=== PATIENT | male | born 1980 | race Caucasian/White ===

== ENCOUNTER → 2016-09-12 | Emergency (ER) | payer SELFPAY ==
[2016-09-12 17:40] VITALS: BP 154/91; PULSE 93; RESP 16; TEMP 98.6; O2SAT 96
== END | disposition left against medical advice (07) ==
DX: Z53.21 Procedure and treatment not carried out due to patient leaving prior to being seen by health care provider (principal)

== ENCOUNTER 2017-06-08 13:40 | Emergency (ER) | payer MEDICAID ==
[2017-06-08 14:00] VITALS: BP 119/93
--- NOTE | 2017-06-08 15:22 | EDPHY ---
H & P Stated Complaint: MULTIPLE C/O, STATES THAT HE CANT WALK Time Seen by Provider: 06/08/17 15:13 HPI/ROS: CHIEF COMPLAINT: Numbness HISTORY OF PRESENT ILLNESS: Patient is a 37-year-old man who was just released from long-term who originally complained of numbness in his entire body and double vision. Was triaged and nursing staff gave him a sandwich and several drinks of apple juice. When I saw him he states that he has had numbness on the right- sided his body for 3 weeks. 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 When I saw him he is moving all extremities without difficulty. He denies bowel or bladder abnormalities. He asked for 3 more juices and to use the phone so he could leave. He denies recent fevers or injuries. He was ambulating without difficulty in long-term a few hours ago. REVIEW OF SYSTEMS: Constitutional: See HPI EENTM: denies: blurred vision, double vision, nose congestion Respiratory: denies: cough, shortness of breath Cardiac: denies: chest pain, irregular heart rate, lightheadedness, palpitations Gastrointestinal/Abdominal: denies: abdominal pain, diarrhea, nausea, vomiting, blood streaked stools Genitourinary: denies: dysuria, frequency, hematuria, pain Musculoskeletal: See HPI Skin: denies: lesions, rash, jaundice, bruising Neurological: denies: headache, numbness, paresthesia, tingling, dizziness, weakness Hematologic/Lymphatic: denies: blood clots, easy bleeding, easy bruising Immunologic/allergic: denies: HIV/AIDS, transplant EXAM: GENERAL: Well-appearing, well-nourished and in no acute distress. HEAD: Atraumatic, normocephalic. EYES: Pupils equal round and reactive to light, extraocular movements intact, sclera anicteric, conjunctiva are normal. ENT: TMs normal, nares patent, oropharynx clear without exudates. Moist mucous membranes. NECK: Normal range of motion, supple without lymphadenopathy or JVD. LUNGS: Breath sounds clear to auscultation bilaterally and equal. No wheezes rales or rhonchi. HEART: Regular rate and rhythm without murmurs, rubs or gallops. ABDOMEN: Soft, nontender, normoactive bowel sounds. No guarding, no rebound. No masses appreciated. BACK: No CVA tenderness, no spinal tenderness, step-offs or deformities EXTREMITIES: The slight weakness to right arm with obvious surgical scars. Normal strength to shoulder. No pronator drift. Normal appearing right leg. Lifts or moves around. NEUROLOGICAL: Cranial nerves II through XII grossly intact. Normal speech, normal gait. normal movement in all extremities, normal sensation the NIH stroke score 0 PSYCH: Normal mood, normal affect. SKIN: Warm, dry, normal turgor, no visible rashes or lesions. Source: Patient, RN/MD Exam Limitations: No limitations - Personal History Current Tetanus/Diphtheria Vaccine: Yes - Medical/Surgical History Hx Asthma: No Hx Chronic Respiratory Disease: No Hx Diabetes: No Hx Cardiac Disease: No Hx Renal Disease: No Hx Alcoholism: Yes Other PMH: R ARM FX, FOOT FX - Family History Significant Family History: No pertinent family hx - Social History Smoking Status: Never smoked Alcohol Use: Heavy Drug Use: Other Constitutional: Initial Vital Signs Temperature (C) 36.9 C 06/08/17 13:58 Heart Rate 65 06/08/17 13:58 Respiratory Rate 16 06/08/17 13:58 Blood Pressure 119/93 H 06/08/17 13:58 O2 Sat (%) 98 06/08/17 13:58 O2 Delivery Mode Room Air Allergies/Adverse Reactions: No Known Allergies Allergy (Unverified 09/12/16 17:37) Home Medications: Medication Instructions Recorded NK [No Known Home Meds] 09/12/16 Medical Decision Making ED Course/Re-evaluation: Patient appears to have been malingering. After food and drink he is now moving all extremities but does have some baseline deficits in his right arm because of the radial nerve palsy. He is moving all extremities at baseline. He is eating. He asked for several more drinks in the telephone. Will discharge him at this time. Differential Diagnosis: Partial list of the Differential diagnosis considered include but were not limited to; neuropathy, CVA, infection, spinal cord abnormality, malingering, hypoglycemia and although unlikely based on the history and physical exam, I also considered electrolyte abnormality, hemorrhage, aneurysm. Departure - Departure Disposition: Home, Routine, Self-Care Clinical Impression: Paresthesia Condition: Fair Instructions: Paresthesia (ED) Referrals: NONE *PRIMARY CARE P,. [Primary Care Provider] - As per Instructions Rashi Rivas MD [Medical Doctor] - As per Instructions
--- NOTE | 2017-06-08 17:36 | ASDISCHSUM ---
Discharge Information Plan Status:Home with No Needs Medically Cleared to Leave:06/08/2017 Discharge Date:06/08/2017 03:54 PM CM D/C Disposition:Home, Routine, Self-Care ADT D/C Disposition:Home, Routine, Self-Care Projected Discharge Date:06/08/2017 03:54 PM Transportation at D/C:None or Unknown Discharge Delay Reason: Follow-Up Date:06/08/2017 03:54 PM Discharge Slot:2 - 12:01 pm - 18:00 pm Final Diagnosis:Paresthesia, numbness Placement Information Patient Contact Information Contact Name:JENNIFER Relationship:Mother Address:[address] Work Phone: [facility]:[employer] Alternate Phone: [facility]/Zip Code:[place] [address] Email: Financial Information Financial Class:Self-Pay Primary Plan Desc:SELF PAY Primary Plan Number: Secondary Plan Desc: Secondary Plan Number: Assessment Information [facility] Progress Note CM Note CM Note Notes: Pt presented to the Emergency Department with numbness in his legs. Pt was released from [facility] 2-3 hrs prior to presenting to the ED. Per ARACELY Crabtree, pt reports being unable to walk for the past 2 weeks. He states he has been laying in bed at the [facility]. Per ARACELY Crabtree, pt requested a sandwich and several juices. Pt wearing ear plugs, refusing to remove during RN and MD assessments. CM attempted to meet with pt to discuss needs and to assist with a discharge plan. Pt requesting a cane for d/c. Pt with large hole in david. CM offered pt new pair on pants, pt refused. Pt requesting "a shirt to tie around his waist." Long sleeve shirt obtained for pt. Pt yelling at staff demanding a cane for discharge. Security obtained wooden cane for pt from lost [facility] found. Pt refused cane. CM attempted to determine pt's plan following discharge - pt refused to discuss. Offered pt assistance in scheduling Neurology follow up, pt refused. Pt left hospital on foot with personal belongings in hand. CM available for any further issues or concerns. Date Signed: 06/08/2017 05:34 PM Electronically Signed By:Jia Davis RN Intervention Information
== END 2017-06-08 15:54 | disposition home or self-care (01) ==
DX: R20.2 Paresthesia of skin (principal)

== ENCOUNTER 2017-06-09 09:20 | Emergency (ER) | payer MEDICAID ==
--- NOTE | 2017-06-09 09:32 | EDPHY ---
H & P Time Seen by Provider: 06/09/17 09:31 HPI/ROS: HPI: This is a 29-year-old male who presents with Chief Complaint: Alcohol intoxication Location: body Quality: Alcohol intoxication Duration: Today Signs and Symptoms: Denies auditory or visual hallucination, denies suicidal ideation, denies homicidal ideation, no paranoia, denies chest pain, denies abdominal pain, denies nausea, denies vomiting, denies hematemesis, denies blood in stool, denies fever, Timing: Acute on chronic Severity: Moderate Context: Patient presents to the emergency room via EMS as he was found on a park bench early this morning with severe alcohol intoxication and agitation. Recently released from [facility]. Patient has alcohol plastic with him upon arrival. He is screaming profanities and racially charged slurs. He has a spit mask on and in 4 point leather restraints. No prior history of psychiatric illnesses. He was seen yesterday with a similar situation here in the emergency room. Modifying Factors: None Comment: ROS: Difficult due to patient's intoxication MEDICAL/SURGICAL/SOCIAL HISTORY: Medical history: Right arm fracture, Lisfranc fracture. Alcoholism Surgical history: Denies Social history: Family history noncontributory. CONSTITUTIONAL: Untidy, uncooperative, intoxicated adult white male; smells heavily of alcohol; awake and alert, no obvious distress HEENT: Atraumatic and normocephalic, PERRL, EOMI. Nares patent; no rhinorrhea; no nasal mucosal edema. Tympanic membranes clear. Oropharynx clear, no exudate and moist pink mucosa. Airway patent. No lymphadenopathy. No meningismus. Cardiovascular: Normal S1/S2, regular rate, regular rhythm, without murmur rub or gallop. PULMONARY/CHEST: Symmetrical and nontender. Clear to auscultation bilaterally. Good air movement. No accessory muscle usage. ABDOMEN: Soft, nondistended, nontender, no rebound, no guarding, no peritoneal signs, no masses or organomegaly. No CVAT. EXTREMITIES: 2/2 pulses, strength 5/5, no deformities, no clubbing, no cyanosis or edema. NEUROLOGICAL: no focal neuro deficits. GCS 15. SKIN: Warm and dry, no erythema. no rash. Good capillary refill. PSYCH: Poor eye contact, no flight of ideas, + tangential disorganized thought process, poor insight and judgment, no auditory and visual command hallucinations, no suicidal ideation with a plan, no homicidal ideation, not paranoid Source: Patient, RN/MD, EMS Exam Limitations: Intoxication - Medical/Surgical History Hx Asthma: No Hx Chronic Respiratory Disease: No Hx Diabetes: No Hx Cardiac Disease: No Hx Renal Disease: No Hx Alcoholism: Yes Other PMH: R ARM FX, FOOT FX - Social History Smoking Status: Never smoked Constitutional: Initial Vital Signs Temperature (C) 36.2 C 06/09/17 09:39 Heart Rate 80 06/09/17 09:39 Respiratory Rate 16 06/09/17 09:39 Blood Pressure 117/98 H 06/09/17 09:39 O2 Sat (%) 95 06/09/17 09:39 O2 Delivery Mode Room Air O2 (L/minute) 2 Allergies/Adverse Reactions: No Known Allergies Allergy (Unverified 09/12/16 17:37) Home Medications: Medication Instructions Recorded NK [No Known Home Meds] 09/12/16 Medical Decision Making ED Course/Re-evaluation: 0920: Placed on [facility] hold/detainer upon arrival. Patient given 2 mg IM Ativan this patient is physically aggressive to staff and is at risk to harm himself as well as the staff. Patient is clearly intoxicated. 4 points restraints ordered. 1050: Notified by nursing that patient is sleeping soundly. 1533: Notified by nursing that patient is ambulating with security without any assistance. No ataxia appreciated. Patient will be discharged to the [facility] with Librium prepack. No signs of alcohol withdrawal/delirium/psychosis. This patient was seen under the supervision of my secondary supervising physician. I evaluated care for this patient independently. Discussed this patient with Dr. Daugherty who did not see the patient. Differential Diagnosis: Differential diagnosis includes but is not limited to alcohol intoxication, schizoaffective disorder, bipolar disorder, substance abuse. - Data Points Medications Given: Discontinued Medications Chlordiazepoxide (Librium 25 Mg Prepack#6) 1 btl TAKEHOME EDNOW ONE Stop: 06/09/17 15:35 Last Admin: 06/09/17 15:42 Dose: 1 btl Lorazepam (Ativan Injection) 2 mg IM EDNOW ONE Stop: 06/09/17 09:41 Last Admin: 06/09/17 09:56 Dose: 2 mg Departure - Departure Disposition: Home, Routine, Self-Care Clinical Impression: Alcohol intoxication Qualifiers: Complication of substance-induced condition: uncomplicated Qualified Code(s): F10.920 - Alcohol use, unspecified with intoxication, uncomplicated Condition: Good Instructions: Alcohol Intoxication (ED), Abuse of Alcohol (ED) Additional Instructions: Please slowly decrease your alcohol intake. You will be discharged to [facility]. Call 911 if you have thoughts of hurting or killing yourself or anyone else, or have any new or worsening symptoms that concern you. Referrals: [facility] 24 Hours [Outside] - As per Instructions
[2017-06-09] MEDS ORDERED: LORazepam 2 MG/ML INJ IM ONE (09:40)
[2017-06-09] MEDS ORDERED: CHLORDIAZEPOXIDE 25MG PREPK#6 BTL TAKEHOME ONE (15:34)
[2017-06-09 16:27] VITALS: BP 100/75
== END 2017-06-09 16:30 | disposition home or self-care (01) ==
LOC: EDBD → EDUNIT#
DX: F10.920 Alcohol use, unspecified with intoxication, uncomplicated (principal)
CPT/HCPCS: J2060

== ENCOUNTER 2017-06-09 19:41 | Emergency (ER) | payer MEDICAID ==
[2017-06-09 19:51] VITALS: BP 138/101
--- NOTE | 2017-06-09 20:00 | EDPHY ---
H & P Stated Complaint: pt with chronic ambulatory issues. was sent back from [facility] Time Seen by Provider: 06/09/17 19:43 HPI/ROS: CHIEF COMPLAINT: Numbness in his body HISTORY OF PRESENT ILLNESS: The patient is a 37-year-old man who I am familiar with from seeing him yesterday. He yesterday complained of numbness in his entire body initially and then when I saw him he complained primarily of numbness in his right arm and leg. He had been in shelter until just before that visit and had been ambulating and moving around normally there. He has history of a arm fracture with radial neuropathy as well as Lisfranc fracture with chronic limping in his right foot. He would move his arm and leg and could ambulate however. After he had a sandwich in several juices and eventually admitted that he did not have any acute deficits or changes. He then got angry when being discharged in demanding cane. A cane was given to him but he got angry again and he threw it away. Today he was seen again for intoxication. At that point he had to be restrained in 4 point restraints because he was so combative and moving all extremities. He did not have any neuro deficits on exam. He was taken to the [facility] and there began complaining that he was numb on his right side. When I saw him again tonight he initially told me that he was numb and we discussed his previous visit and the injury history. He again admitted that he does not have any new deficits today but asked if he could only stay here for a little while to sleep and have something to eat and drink. REVIEW OF SYSTEMS: Constitutional: denies: chills, fever, recent illness, recent injury EENTM: denies: blurred vision, double vision, nose congestion Respiratory: denies: cough, shortness of breath Cardiac: denies: chest pain, irregular heart rate, lightheadedness, palpitations Gastrointestinal/Abdominal: denies: abdominal pain, diarrhea, nausea, vomiting, blood streaked stools Genitourinary: denies: dysuria, frequency, hematuria, pain Musculoskeletal: See HPI Skin: denies: lesions, rash, jaundice, bruising Neurological: See HPI denies: headache, dizziness, weakness Hematologic/Lymphatic: denies: blood clots, easy bleeding, easy bruising Immunologic/allergic: denies: HIV/AIDS, transplant EXAM: GENERAL: Well-appearing, well-nourished and in no acute distress. HEAD: Atraumatic, normocephalic. EYES: Pupils equal round and reactive to light, extraocular movements intact, sclera anicteric, conjunctiva are normal. ENT: TMs normal, nares patent, oropharynx clear without exudates. Moist mucous membranes. NECK: Normal range of motion, supple without lymphadenopathy or JVD. LUNGS: Breath sounds clear to auscultation bilaterally and equal. No wheezes rales or rhonchi. HEART: Regular rate and rhythm without murmurs, rubs or gallops. ABDOMEN: Soft, nontender, normoactive bowel sounds. No guarding, no rebound. No masses appreciated. BACK: No CVA tenderness, no spinal tenderness, step-offs or deformities EXTREMITIES: Normal range of motion, no pitting or edema. No clubbing or cyanosis. NEUROLOGICAL: Cranial nerves II through XII grossly intact. Normal speech, unsteady gait. 5/5 strength, normal movement in all extremities but if asked directly to do a neuro exam will not move arm or leg much. When distracted however he moves them normally PSYCH: Angry SKIN: Warm, dry, normal turgor, no visible rashes or lesions. Source: Patient, EMS Exam Limitations: No limitations - Personal History Current Tetanus/Diphtheria Vaccine: Unsure Current Tetanus Diphtheria and Acellular Pertussis (TDAP): Unsure - Medical/Surgical History Hx Asthma: No Hx Chronic Respiratory Disease: No Hx Diabetes: No Hx Cardiac Disease: No Hx Renal Disease: No Hx Cirrhosis: No Hx Alcoholism: Yes Hx HIV/AIDS: No Hx Splenectomy or Spleen Trauma: No Other PMH: R ARM FX, FOOT FX - Family History Significant Family History: No pertinent family hx - Social History Smoking Status: Never smoked Alcohol Use: Sober Drug Use: Marijuana, Other Constitutional: Initial Vital Signs Temperature (C) 37.0 C 06/09/17 19:47 Heart Rate 96 06/09/17 19:47 Blood Pressure 131/88 H 06/09/17 19:47 O2 Sat (%) 91 L 06/09/17 19:47 Allergies/Adverse Reactions: No Known Allergies Allergy (Unverified 09/12/16 17:37) Home Medications: Medication Instructions Recorded NK [No Known Home Meds] 09/12/16 Medical Decision Making ED Course/Re-evaluation: The patient is clearly malingering. He is here for long term and food. He does not have any neurologic deficits when distracted observed on the camera. He does not have any new or acute deficits injuries pain. We refused to give him if it and will discharge him at this time. Differential Diagnosis: Partial list of the Differential diagnosis considered include but were not limited to; intoxication, neuropathy, chronic pain, substance abuse and although unlikely based on the history and physical exam, I also considered Guillain-Winfield, CVA, spinal cord injury, infection. I discussed these differential diagnoses and the plan with the patient as well as the usual and expected course. The patient understands that the diagnosis is provisional and that in medicine we are not always correct and that further workup is often warranted. Usual and customary warnings were given. All of the patient's questions were answered. The patient was instructed to return to the emergency department should the symptoms at all worsen or return, otherwise to followup with the physician as we discussed. Departure - Departure Disposition: Home, Routine, Self-Care Clinical Impression: Malingering Condition: Fair Instructions: Alcohol Dependence (ED) Referrals: NONE *PRIMARY CARE P,. [Primary Care Provider] - As per Instructions
== END 2017-06-09 20:12 | disposition home or self-care (01) ==
LOC: EDUNIT#
DX: Z76.5 Malingerer [conscious simulation] (principal)

== ENCOUNTER 2017-06-12 17:28 | Inpatient (IN) | payer MEDICAID ==
--- NOTE | 2017-06-12 17:56 | EDPHY ---
H & P Stated Complaint: R SIDED BODY NUMBNESS FOR 3 WEEKS BEEN SEEN SEVERAL TIMES IN ED FOR SAME Time Seen by Provider: 06/12/17 17:56 HPI/ROS: CHIEF COMPLAINT: Right-sided numbness HISTORY OF PRESENT ILLNESS: The patient presents the ED with a 3 week history of right-sided numbness. The patient complains of numbness involving his right arm and leg. He denies significant facial numbness. He does report some blurry vision. The patient denies any history of fall or trauma. He denies neck pain. He denies prior history of CVA or TIA. The patient does have a history of alcohol dependence. The patient reports his last drink was last night. The patient has been seen in the emergency department over the past several days with this complaint. He is left the department without significant workup. REVIEW OF SYSTEMS: A comprehensive 10 point review of systems is otherwise negative aside from elements mentioned in the history of present illness. Source: Patient - Personal History Current Tetanus Diphtheria and Acellular Pertussis (TDAP): Unsure - Medical/Surgical History Hx Asthma: No Hx Chronic Respiratory Disease: No Hx Diabetes: No Hx Cardiac Disease: No Hx Renal Disease: No Hx Cirrhosis: No Hx Alcoholism: Yes Hx HIV/AIDS: No Hx Splenectomy or Spleen Trauma: No Other PMH: R ARM FX, FOOT FX - Social History Smoking Status: Current every day smoker - Physical Exam Exam: General Appearance: Alert, no distress Eyes: Pupils equal and round no pallor or injection ENT, Mouth: Mucous membranes moist Respiratory: There are no retractions, lungs are clear to auscultation Cardiovascular: Regular rate and rhythm Gastrointestinal: Abdomen is soft and nontender, no masses, bowel sounds normal Neurological: Alert and oriented x4, 5/5 strength noted all 4 extremities, patient reports decreased sensation to light touch along the lateral aspect of the right arm and right leg. The patient is somewhat uncooperative with exam. I detect no obvious pronator drift. The patient tells me he is having some difficulty walking and is unwilling to attempt ambulation in the ED. Skin: Warm and dry, no rashes Musculoskeletal: Neck is supple nontender Extremities: symmetrical, full range of motion Constitutional: Initial Vital Signs Temperature (C) 37 C 06/12/17 17:41 Heart Rate 69 06/12/17 17:41 Respiratory Rate 16 06/12/17 17:41 Blood Pressure 124/93 H 06/12/17 17:41 O2 Sat (%) 96 06/12/17 17:41 O2 Delivery Mode Room Air Allergies/Adverse Reactions: No Known Allergies Allergy (Unverified 09/12/16 17:37) Home Medications: Medication Instructions Recorded NK [No Known Home Meds] 09/12/16 Medical Decision Making - Diagnostics EKG Interpretation: EKG: Complete interpretation has been separately recorded in the [facility] archive. Summary impression: Sinus rhythm, rate 62 Imaging Results: Imaging Impressions Brain MRI 06/12/17 17:57 Impression: 1. 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 2. No acute infarct. 3. No acute hemorrhage, hydrocephalus or mass effect. Findings and recommendations discussed with Emergency Department physician, Carmelo Vizcarra at 1850 hour, 06/12/2017. Final report concurs with initial preliminary interpretation. ED Course/Re-evaluation: The patient is an alcoholic homeless male who presents to the emergency department with 3 weeks of right-sided paresthesias, visual complaints of reported difficulty with ambulation. The patient was taken for an MRI of the brain which demonstrates a thalamic stroke which is not acute. The patient reports he has had the symptoms for the past 3 weeks. The etiology of his stroke is somewhat uncertain. I do feel given his current social situation lack of access to primary care he should be admitted for evaluation of his CVA. A CT angiogram of the head neck has been ordered. The patient was given an 81 mg aspirin in the emergency department. Consultation was made with Dr. Magaña from the hospitalist service who will admit the patient. The patient currently has an NIH stroke scale of 1-2 based upon his sensory symptoms. He is not a candidate for thrombolytics therapy given the duration of his symptoms. Differential Diagnosis: Differential diagnosis considered includes stroke, TIA, intracranial hemorrhage , metabolic abnormality, Deny's paralysis - Data Points Laboratory Results: Laboratory Results 06/12/17 19:40 06/12/17 19:40 06/12/17 06/12/17 06/12/17 19:40 19:40 19:40 WBC 7.25 10^3/uL 10^3/uL (3.80-9.50) RBC 4.12 10^6/uL L 10^6/uL (4.40-6.38) Hgb 12.7 g/dL L g/dL (13.7-17.5) Hct 37.4 % L % (40.0-51.0) MCV 90.8 fL fL (81.5-99.8) MCH 30.8 pg pg (27.9-34.1) MCHC 34.0 g/dL g/dL (32.4-36.7) RDW 12.3 % % (11.5-15.2) Plt Count 270 10^3/uL 10^3/uL (150-400) MPV 10.1 fL fL (8.7-11.7) Neut % (Auto) 64.4 % % (39.3-74.2) Lymph % (Auto) 24.6 % % (15.0-45.0) [place] % (Auto) 8.1 % % (4.5-13.0) Eos % (Auto) 1.5 % % (0.6-7.6) Baso % (Auto) 0.7 % % (0.3-1.7) Nucleat RBC Rel Count 0.0 % % (0.0-0.2) Absolute Neuts (auto) 4.67 10^3/uL 10^3/uL (1.70-6.50) Absolute Lymphs (auto) 1.78 10^3/uL 10^3/uL (1.00-3.00) Absolute Monos (auto) 0.59 10^3/uL 10^3/uL (0.30-0.80) Absolute Eos (auto) 0.11 10^3/uL 10^3/uL (0.03-0.40) Absolute Basos (auto) 0.05 10^3/uL 10^3/uL (0.02-0.10) Absolute Nucleated RBC 0.00 10^3/uL 10^3/uL (0-0.01) Immature Gran % 0.7 % % (0.0-1.1) Immature Gran # 0.05 10^3/uL 10^3/uL (0.00-0.10) Sodium 142 mEq/L mEq/L (135-145) Potassium 3.9 mEq/L mEq/L (3.5-5.2) Chloride 107 mEq/L mEq/L (97-110) Carbon Dioxide 25 mEq/l mEq/l (22-31) Anion Gap 10 mEq/L mEq/L (8-16) BUN 7 mg/dL mg/dL (7-23) Creatinine 0.8 mg/dL mg/dL (0.7-1.3) Estimated GFR > 60 Glucose 91 mg/dL mg/dL (70-100) Calcium 8.9 mg/dL mg/dL (8.5-10.4) Ethyl Alcohol Pending Departure - Departure Disposition: [facility] Clinical Impression: Alcohol dependence, Ischemic stroke Condition: Fair
[2017-06-12 19:47] LABS: PLATELET COUNT 270 10^3/uL (150-400)
[2017-06-12] MEDS ORDERED: IOPAMIDOL (ISOVUE 370) 100 ML BTL IV ONE (20:06)
[2017-06-12] MEDS ORDERED: ASPIRIN 325 MG TAB PO ONE (20:25)
--- NOTE | 2017-06-12 20:41 | CPEKG ---
Heart Rate: 62 RR Interval: 968 P-R Interval: 180 QRSD Interval: 94 QT Interval: 424 QTC Interval: 431 P Lugoff: 37 QRS Lugoff: 48 T Wave Lugoff: 29 EKG Severity - NORMAL ECG - EKG Impression: SINUS RHYTHM Electronically Signed By: Carmelo Vizcarra 12-Jun-2017 20:43:36
[2017-06-12] MEDS ORDERED: ONDANSETRON DISINTEGRATING 4 MG TAB PO PRN (21:46)
[2017-06-12] MEDS ORDERED: ONDANSETRON 4 MG/2 ML VIAL IVP PRN (21:46)
--- NOTE | 2017-06-12 22:47 | GHP ---
[f rep st] HISTORY AND PHYSICAL DATE OF ADMISSION: 06/12/2017 CHIEF COMPLAINT: Right-sided weakness. HISTORY OF PRESENT ILLNESS: The patient is a 37-year-old, homeless man who comes in with several wee ks of right-sided numbness and weakness. He has been seen in the emergency department a couple times . His last visit was on 06/09. At that time, he continued to complain of numbness and when he came in, he said his symptoms had resolved and he wanted to just eat and sleep in the ER for a while. Tod benigno, he came back complaining of right-sided numbness. He said he felt weak, but it was not clear if he was truly weak or not. He has had no fevers, chills, recent illnesses. He said he has had no sle ep in the last 2 weeks and his vision is bad. He said he is having more trouble with his speech but no trouble swallowing. He also had some pain on the right hand associated with the numbness. He den ies any head trauma. No history of travel. No history of previous clots or heart disease or previou s strokes. He is very difficult to get a history out of. REVIEW OF SYSTEMS: A comprehensive review of systems was done with pertinent positives present in th e HPI. PAST MEDICAL HISTORY: Negative. SOCIAL HISTORY: He is currently homeless. When I ask him where he lives, he says he is here in the hospital. He says he smokes about a half pack a day and drinks only about 2 drinks per night. He de nies any history of withdrawals. FAMILY HISTORY: Both his parents he believes are healthy. No history of strokes or blood clots that he knows of. MEDICATIONS: None. ALLERGIES: No known drug allergies. PHYSICAL EXAMINATION: VITAL SIGNS: He is afebrile. Heart rate 64, blood pressure 142/97, respirati ons 17, 98% on room air. GENERAL: He is a very pleasant, 37-year-old, he is in no distress. He is sleepy. HEENT: Pupils appear equal. Sclerae anicteric. Extraocular movements intact. Face is sym metric. There is no facial droop. Tongue is midline. NECK: Supple. No adenopathy. No carotid br uits. HEART: Regular without murmur, gallop, or rub. LUNGS: Clear bilaterally. No wheeze or rhon chi. ABDOMEN: Soft. No masses. EXTREMITIES: No clubbing, cyanosis, or edema. SKIN: Intact. No rash. MUSCULOSKELETAL: No joint deformities. NEUROLOGIC: He does have some slight weakness on the right upper extremity in cue selector strength as well as biceps and triceps strength is probably 4+/5. Left hand is 5/5. Lower extremities appear fairly equal. Subjectively, his sensation is decreased on e right side. PSYCHIATRIC: He has poor eye contact and a depressed mood. LABORATORY DATA: CBC is unremarkable, except for mild anemia with a hemoglobin of 12.7. Chemistries are normal. Alcohol level is negative. DIAGNOSTICS: MRI of the brain shows an old infarct in the left thalamus. No acute infarct. CT michael ogram of the head and neck shows no stenosis. ASSESSMENT AND PLAN: 1. A 37-year-old presents with unknown duration of some right-sided numbness and some mild right upp er extremity weakness. 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 Timeline is uncertain at this point . He is a young man and I do not have a clear reason why he would have this stroke. Plan will be to admit him in the hospital for telemetry monitoring to rule out atrial fibrillation. Will get an ech ocardiogram with bubble study and have Neurology consult in the a.m. I will defer to them if they wa nt to do a further anticoagulation workup. In the meantime, I will get lipid panel and hemoglobin A1 c. He was able to swallow water without any coughing and I will let him eat tonight. He does not olivera ve any visible facial droop. 2. Alcoholism. He denies being a heavy drinker, although he has had an elevated alcohol level in past. Will add a urine drug screen to look for cocaine or other possibilities as to a cause of his stroke. 3. Homelessness. Will work with Case Management. 4. Deep vein thrombosis prophylaxis. Start low-molecular weight heparin. /[id number]/MODL
[2017-06-13] MEDS: ASPIRIN 325 MG TAB PO SCH (09:16)
[2017-06-13] MEDS: ENOXAPARIN 40 MG/0.4 ML SYR SC SCH (09:16)
--- NOTE | 2017-06-13 09:46 | NEUROPROG ---
Assessment: [id number] - Neurology Consult: - CC: Dr. Cnonie Magaña consulted neurology for right sided weakness. Results placed in EMR for her review. - HPI: Pt who is homeless presented to [facility] ER on 06/12/17 complaining of several weeks of right sided numbness and weakness as well as speech problems. He had been seen previously in the ER for similar complaints in the last few weeks. Brain MRI w/o con showed no acute changes (did show old left thalamic infarct) and CTA head/neck was unremarkable. I initially saw the patient on 06/13/17. He could not give a precise history but he seemed to indicated over the last few weeks he had right sided weakness and numbness that would come and go. He did not recall a prior stroke or prior residual neurologic issues in the past. He felt almost completely back to normal when I talked with him. - PMHx: none - SHx: homeless FHx: no strokes - ROS: Pt denied acute fever, total vision loss, active severe chest pain, respiratory failure, total body severe rash, total bowel/bladder incontinence, psychosis, active seizures, or active bleeding - O: VS reviewed General: Alert Eyes: Fundoscopic exam not able to visualize optic disks CV: Heart RRR, no murmur, no carotid bruit Lungs: Clear to auscultation bilaterally, no rhonchi or rales Neuro: - Mental: . Oriented x person/place/date . concentration appears normal . speech fluency/comprehension normal . memory appears normal . fund of knowledge appear intact - Cranial Nerves: . II: PERRL, VFFTC . III/IV/: EOMI, no nystagmus, normal smooth pursuits, no Ptosis . V: facial sensation intact to LT . VII: face symmetric to eye closure and smile . VIII: hearing intact to conversation . IX/X: uvula raises symmetrically . XI: SCM 5/5 B/L strength . XII: tongue protrudes midline w/nl strength - Motor: . Tone: normal tone in all 4 extremity . Strength: no pronator drift, strength 5/5 throughout (B/L delt, bic, tri, hand surgical physician assistant, hf/he, df/pf) - Reflexes: B/L bic/BR/patella 2/4 - Sensory: all 4 extremity intact to light touch - Coord: [id number]-cw-[id number] wnl, FREDDY wnl, [id number]-[id number] wnl - Gait: deferred - NIH SS 0 - Labs: 06/12/17- CBC Hct 37.4L, Chem wnl, H1AC 5.1, UTox negative - Rads: 06/12/17- CTA head/neck: unremarkable - 06/12/17- Brain MRI w/o con: old left thalamus infarct, no acute changes (I personally visualized the images on 06/13/17) - Assessment: 1. Subjective Report of intermittent Right sided weakness/numbness and speech issues for weeks on 06/13/17: Neurologic exam normal on 06/13/17. Pt is homeless which complicates his medical picture. Brain MRI on 06/12/17 showed no acute changes to explain his symptoms. He does have an old left thalamic infarct so it is possible his weakness is from that old stroke. Recommend completing stroke evaluation and getting cervical MRI w/ and w/o con. If workup is negative he can discharge on aspirin 81 mg qd and f/u in neurology clinic for EMG/NCS testing on right side of body. - Plan: - TTE, 24 hour telemetry - PT/OT/SPeech - Social work given pt is homeless - Work closely with PCM to ensure blood pressure < 140/90, H1AC < 7.0, and LDL < 70 (LDL pending, begin statin if > 70) - Aspirin 81 mg qd given old thalamic stroke seen on brain MRI - Cervical MRI w/ and w/o con to exclude demyelination causing symptoms - F/U in neurology clinic after hospital discharge for EMG/NCS of right side to evaluate for peripheral nerve disease Objective: Vital Signs Temp Pulse Resp BP Pulse Ox 37.1 C 52 L 16 122/93 H 98 06/13/17 03:10 06/13/17 03:10 06/13/17 03:10 06/13/17 03:10 06/13/17 03:10 06/12/17 06/13/17 06/14/17 05:59 05:59 05:59 Intake Total 700 Output Total 745 Balance -45 Allergies/Adverse Reactions: No Known Allergies Allergy (Unverified 09/12/16 17:37)
[2017-06-13] MEDS: NICOTINE 21 MG/24 HR PATCH TD SCH (11:39)
--- NOTE | 2017-06-13 13:01 | HOSPPROG ---
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 Appreciate neurology consult. -Cervical MRI today to r/o demyelinating lesions -cont ASA -add on lipid panel and start statin if LDL >70 -cont telemetry monitoring -echo pending -BP goal <140/90 H/O alcohol abuse - neg etoh, denies recent heavy drinking. -monitor for signs/symptoms of withdrawal Tobacco abuse - offered nicoderm, discussed non-smoking campus and CVA risk factor. -cessation encouraged Homelessness - CM consult Full code Dispo - change to inpt for further workup and evaluation of right sided numbness and CVA Subjective: Pt sitting in wheelchair by the door. Demands to go outside and smoke. Still has right sided weakness, intermittent numbness of right arm. Currently, sensation intact. No CP or SOB. No palpitations. No olivera or vision changes. Objective: Vital Signs Temp Pulse Resp BP Pulse Ox 37.1 C 52 L 16 122/93 H 98 06/13/17 03:10 06/13/17 03:10 06/13/17 03:10 06/13/17 03:10 06/13/17 03:10 06/12/17 06/13/17 06/14/17 05:59 05:59 05:59 Intake Total 700 Output Total 745 Balance -45 - Physical Exam Constitutional: no apparent distress Eyes: PERRL Ears, Nose, Mouth, Throat: moist mucous membranes Cardiovascular: regular rate and rhythym Respiratory: no respiratory distress, clear to auscultation Gastrointestinal: normoactive bowel sounds, soft, non-tender abdomen Skin: warm Musculoskeletal: other (4/5 RUE extensor strength, 4/5 RLE proximal strength, + pronator drift on right, no facial asymmetry, speech fluent) Neurologic: AAOx3 Psychiatric: interacting appropriately ICD10 Worksheet Patient Problems: Problems Problem Status Onset Alcohol dependence Acute Ischemic stroke Acute
--- NOTE | 2017-06-13 15:34 | PDMN ---
Medical Necessity Medical necessity: change to IP; los>2mn for thalamus stroke w/ R sided numbness , hx etoh abuse; requires further w/u and evaluation and monitoring for etoh withdrawal; comorbid homelessness; per order and progress note 06/13/17
--- NOTE | 2017-06-13 16:46 | ASMTCMCOM ---
CM Note CM Note Notes: Pt in for stroke, came in after several weeks of R sided numbness/weakness. Pt has also been in the [facility] ED recently (there is a 06/08/17 CM note). Pt homeless and history of alcoholism. Pt qualified for Medicaid today effective 05/21/17. Neurology consulting. OT rec outpatient, PT rec SNF, pt declined [facility] eval today. Pt does not qualify for inpatient rehab. CM to follow. Date Signed: 06/13/2017 04:46 PM Electronically Signed By:SOPHIE Bauman
--- NOTE | 2017-06-13 17:11 | ECHO ---
[email or web address] [address] [address] Main: [phone] Fax: Transthoracic Echocardiogram Name: [place] O[place] MR#: [id number] Study Date: 06/13/2017 Study Time: 08:35 AM Date of : 1980 Age: 37 year(s) Height: 170.2 cm (67 in.) Weight: 63.5 kg (140 lb.) BSA: 1.74 m2 Gender: Male Examination: Echo Indication: tia Image Quality: Contrast: Requested by: Connie Magaña BP: / Heart Rate: Rhythm: Indication: tia Procedure Staff Social Sciences Lecturer: Iesha Josue [facility] Reading Physician: Luis Chapin MD Requesting Provider: Conclusions: Normal size left ventricle. No LV hypertrophy. Normal global systolic LV function. The ejection fraction is visually estimated to be 60 %. Normal diastolic LV function. An agitated saline study was performed and was negative for intracardiac shunting. The mitral valve is normal in appearance and function. Mild mitral valve regurgitation is present. The aortic valve is normal in appearance and function. No aortic valve stenosis is present. The tricuspid valve is normal in appearance and function. Trivial to mild tricuspid valve regurgitation. Right ventricular systolic pressure measures 21mmHg. Normal size ascending aorta measuring 2.6 cm. No pericardial effusion. Measurements: Chambers Valvular Assessment AV/MV Valvular Assessment TV/PV Normal Normal Normal Name Value Range Name Value Range Name Value Range Ao Corie (2D): 2.8 cm (1.4 cm-2.6 AV Vmax: 1.60 m/s (1 m/s-1.7 TR Vmax: 2.01 mm/s ( - ) cm) m/s) TR PGmax: 16 mmHg ( - ) IVSd (2D): 0.9 cm (0.6 cm-1.1 AV maxP mmHg ( - ) syst. PAP: 21 mmHg ( - ) cm) AV meanP mmHg ( - ) PV Vmax: 1.17 m/s (0.6 m/s-0.9 LVDd (2D): 4.2 cm (4.2 cm-5.9 LVOT Vmax: 1.08 m/s (0.7 m/s-1.1 m/s) cm) m/s) PV PGmax: 5 mmHg ( - ) LVDs (2D): 2.6 cm (2.1 cm-4 LINDSEY (Vmax): 1.9 cm2 ( - ) cm) LINDSEY (VTI): 2.2 cm ( - ) LVPWd (2D): 1.0 cm (0.6 cm-1 MV E Vmax: 0.88 m/s ( - ) cm) MV A Vmax: 0.49 m/s ( - ) Patient: LA[place] OSUNA Study Date: 06/13/2017 Page 1 of 3 08:35 AM LVOTd 1.9 cm 1.9 cm mm MV E/A: 1.80 ( - ) LVEF (BP): 69 % (>=55 %) MV PHT: 0.063 s ( - ) Visual EF: 60 % MVA (PHT): 3.5 s ( - ) RVDd(2D): 2.8 cm (1.9 cm-3.8 cmmm) Continued Measurements: Chambers Valvular Assessment AV/MV Valvular Assessment TV/PV Name Value Name Value Name Value LADs: 3.3 cm MV DecTime: 190 m/s CVP (est.): 5 mmHg LADs Lon.0 cm MV E/E' Septal: 7.60 LA Area: 16.0 cm2 MV E/E' Lateral: 5.20 LA Volume: 45 ml LA Volume Index: 25.9 ml/m2 RA Area: 13.1 cm2 Additional Vessels Name Value Ao Ascendin.6 cm Inferior Vena Cava: 1.3 cm Findings: Left Ventricle: Normal size left ventricle. No LV hypertrophy. Normal global systolic LV function. The ejection fraction is visually estimated to be 60 %. No regional wall motion abnormality. Normal diastolic LV function. Right Ventricle: Normal size right ventricle. Normal RV function. Left Atrium: The left atrium is normal in size. An agitated saline study was performed and was negative for intracardiac shunting. Right Atrium: The right atrium is normal in size. Mitral Valve: The mitral valve is normal in appearance and function. Mild mitral valve regurgitation is present. No mitral stenosis is present. Aortic Valve: The aortic valve is normal in appearance and function. There is no significant aortic valve regurgitation. No aortic valve stenosis is present. Tricuspid Valve: The tricuspid valve is normal in appearance and function. Trivial to mild tricuspid valve regurgitation. The pulmonary artery pressure is normal. Right ventricular systolic pressure measures 21mmHg. Pulmonic Valve: Pulmonary valve not well visualized. There is no pulmonic regurgitation seen. Aorta: The aorta is normal. Normal size aortic root measuring 2.8 cm. Normal size ascending aorta measuring 2.6 cm. IVC: The IVC is normal sized. Pericardium: No pericardial effusion. No pleural effusion. Exam Comments: Patient supine, refused to lay on left side due to pain. (No Signature Object) Patient: LA[place] OSUNA Study Date: 06/13/2017 Page 2 of 3 08:35 AM Patient: LA[place] OSUNA Study Date: 06/13/2017 Page 3 of 3 08:35 AM [id number]
[2017-06-14] MEDS: NICOTINE 21 MG/24 HR PATCH TD SCH (09:21)
[2017-06-14] MEDS: ACETAMINOPHEN 325 MG TAB PO PRN ×2 (09:21→14:21)
[2017-06-14] MEDS: LISINOPRIL 5 MG TAB PO SCH (09:22)
[2017-06-14] MEDS: ASPIRIN 325 MG TAB PO SCH (09:22)
[2017-06-14] MEDS: ATORVASTATIN CALCIUM 20 MG TAB PO SCH (09:23)
--- NOTE | 2017-06-14 10:11 | NEUROPROG ---
Assessment: [id number] - Neurology Consult: - CC: F/U for right sided weakness - Narrative Summary: Pt who is homeless presented to [facility] ER on 06/12/17 complaining of several weeks of right sided numbness and weakness as well as speech problems. He had been seen previously in the ER for similar complaints in the last few weeks. Brain MRI w/o con showed no acute changes (did show old left thalamic infarct) and CTA head/neck was unremarkable. I initially saw the patient on 06/13/17. He could not give a precise history but he seemed to indicated over the last few weeks he had right sided weakness and numbness that would come and go. He did not recall a prior stroke or prior residual neurologic issues in the past. He felt almost completely back to normal when I talked with him. - HPI: F/U 06/14/17. TTE showed no cardioembolic course. Pt declined getting cervical MRI at this time. Pt denied new complaints and feels his right sided weakness is improving. - PMHx: none - SHx: homeless FHx: no strokes - ROS: Pt denied acute fever, total vision loss, active severe chest pain, respiratory failure, total body severe rash, total bowel/bladder incontinence, psychosis, active seizures, or active bleeding - Labs: 06/12/17- CBC Hct 37.4L, Chem wnl, H1AC 5.1, UTox negative - Rads: 06/12/17- CTA head/neck: unremarkable 06/12/17- Brain MRI w/o con: old left thalamus infarct, no acute changes (I personally visualized the images on 06/13/17) 06/13/17- TTE: No thrombus reported - Assessment: 1. Subjective Report of intermittent Right sided weakness/numbness and speech issues for weeks on 06/13/17: Neurologic exam normal on 06/13/17. Pt is homeless which complicates his medical picture. Brain MRI on 06/12/17 showed no acute changes to explain his symptoms. He does have an old left thalamic infarct so it is possible his weakness is from that old stroke. CTA head/neck, TTE, H1AC, LDL, and 24 hour telemetry unremarkable. He can discharge on aspirin 81 mg qd, low dose statin, and f/u in neurology clinic for EMG/NCS testing on right side of body. He declined a cervical MRI w/ and w/o con on 06/14/17 to exclude demyelinating disease. - Plan: - PT/OT/SPeech to determine any rehab needs - Work closely with PCM to ensure blood pressure < 140/90, H1AC < 7.0, and LDL < 70 - Aspirin 81 mg qd given old thalamic stroke seen on brain MRI - LDL 71, recommend low dose statin - He declined a cervical MRI w/ and w/o con on 06/14/17 to exclude demyelinating disease - F/U in neurology clinic after hospital discharge for EMG/NCS of right side to evaluate for peripheral nerve disease - No further neurologic w/u needed, neurology will sign off - 35 min spent with patient, majority of time spent counseling on his symptoms and possible causes. Objective: Vital Signs Temp Pulse Resp BP Pulse Ox 36.3 C 96 18 139/112 H 95 06/14/17 08:00 06/14/17 08:00 06/14/17 08:00 06/14/17 08:00 06/14/17 08:00 06/13/17 06/14/17 06/15/17 05:59 05:59 05:59 Intake Total 700 200 Output Total 744 700 Balance -45 -500 Allergies/Adverse Reactions: No Known Allergies Allergy (Unverified 09/12/16 17:37)
[2017-06-14] MEDS: ENOXAPARIN 40 MG/0.4 ML SYR SC SCH (10:30)
[2017-06-14] MEDS ORDERED: GADOBUTROL 10 ML VIAL IVP ONE (11:40)
--- NOTE | 2017-06-14 13:28 | HOSPPROG ---
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 Appreciate neurology consult. -Cervical MRI today to r/o demyelinating lesions- pt refused yesterday, results currently pending -cont ASA -started low dose statin for LDL >70 -cont telemetry monitoring -echo reviewed, no shunt or thrombus -BP over goal <140/90- start lisinopril, up-titrate as needed -his pain may be neuropathic, trial neurontin H/O alcohol abuse - neg etoh, denies recent heavy drinking. -monitor for signs/symptoms of withdrawal Tobacco abuse - offered nicoderm, discussed non-smoking campus and CVA risk factor. -cessation encouraged Insomnia - trazodone Homelessness - CM consult Full code Dispo - cont inpt, possible SNF, await further therapy recs. Discussed with CM , pt approved for medicaid. Subjective: Pt is "tired". C/O burning pain in arm. Still weak. No significant change in RUE and RLE weakness. Still has trouble walking. EAting well. Objective: Vital Signs Temp Pulse Resp BP Pulse Ox 36.3 C 96 18 139/112 H 95 06/14/17 08:00 06/14/17 08:00 06/14/17 08:00 06/14/17 08:00 06/14/17 08:00 06/13/17 06/14/17 06/15/17 05:59 05:59 05:59 Intake Total 700 200 Output Total 745 700 Balance -45 -500 - Physical Exam Constitutional: no apparent distress Eyes: PERRL Ears, Nose, Mouth, Throat: moist mucous membranes Cardiovascular: regular rate and rhythym Respiratory: no respiratory distress Gastrointestinal: normoactive bowel sounds, soft, non-tender abdomen Skin: warm Musculoskeletal: abnormal gait Neurologic: AAOx3, other (RUE with decreased extensor strength, hand flexure) Psychiatric: interacting appropriately, poor insight ICD10 Worksheet Patient Problems: Problems Problem Status Onset Alcohol dependence Acute Ischemic stroke Acute
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
[2017-06-14] MEDS: GABAPENTIN 300 MG CAP PO SCH ×2 (16:51→20:16)
[2017-06-14] MEDS: traZODone 50 MG TAB PO SCH (20:13)
[2017-06-15] MEDS: ACETAMINOPHEN 325 MG TAB PO PRN (05:23)
--- NOTE | 2017-06-15 08:04 | NEUROPROG ---
Assessment: Pt decided to proceed with cervical MRI w/ and w/o con that was essentially unremarkable (mild degen changes that does not appear to be causing his symptoms ). No additional recs at this time from neurology, the recs in my note from yesterday remain unchanged. Neurology will sign off. Objective: Vital Signs Temp Pulse Resp BP Pulse Ox 36.5 C 54 L 16 111/69 95 06/15/17 05:20 06/15/17 05:20 06/15/17 05:20 06/15/17 05:20 06/15/17 05:20 06/14/17 06/15/17 06/16/17 05:59 05:59 05:59 Intake Total 200 700 Output Total 700 Balance -500 700 Allergies/Adverse Reactions: No Known Allergies Allergy (Unverified 09/12/16 17:37)
[2017-06-15] MEDS: GABAPENTIN 300 MG CAP PO SCH ×3 (09:05→21:52)
[2017-06-15] MEDS: LISINOPRIL 5 MG TAB PO SCH (09:06)
[2017-06-15] MEDS: ASPIRIN 325 MG TAB PO SCH (09:06)
[2017-06-15] MEDS: ATORVASTATIN CALCIUM 20 MG TAB PO SCH (09:06)
[2017-06-15] MEDS: NICOTINE 21 MG/24 HR PATCH TD SCH (09:07)
[2017-06-15] MEDS: ENOXAPARIN 40 MG/0.4 ML SYR SC SCH (09:08)
--- NOTE | 2017-06-15 16:21 | ASMTCMCOM ---
CM Note CM Note Notes: Seven SNFs have declined pt due to various reasons, [facility] and [facility] are SNFs still pending assessment. [facility] still needs to complete functional assessment. Pt declined PT/OT the past couple days. Neurology signed off today. Pt was going to d/c to the streets today and pt was observed today to have some type of psychosis so d/c order cancelled with psych eval ordered by Hospitalist Doris. ARACELY Boateng reports she spoke w pt mother w pt permission and mother indicated pt does have a psych diagnosis but unclear what. Med Data assessment for LTC and [facility] on-site assessment postponed today due to psych concerns. [facility] to assess pt this afternoon. CM to follow. Date Signed: 06/15/2017 04:21 PM Electronically Signed By:SOPHIE Bauman
--- NOTE | 2017-06-15 16:30 | HOSPPROG ---
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 Appreciate neurology consult. C-spine MRI neg for demyelinating dz. -cont ASA, statin -cont tele, no a fib by personal review -echo reviewed, no shunt or thrombus -his pain may be neuropathic, trial neurontin -he is refusing PT/OT Hypertension - BP improved with low dose lisinopril, continue H/O alcohol abuse - neg etoh, denies recent heavy drinking. -monitor for signs/symptoms of withdrawal Tobacco abuse - offered nicoderm, discussed non-smoking campus and CVA risk factor. -cessation encouraged Insomnia - trazodone Homelessness - CM consult Behavioral disturbance NOS - Unclear if this is axis 2 / PD or decompensated mental illness. I am unable to reach his family for further MH hx (phone: ), but some concern he may be responding to internal stimuli and this may be why he is not cooperating with therapy and staff. See Rosario Rutherford's note for details on his behavior and recommendations for interacting with Mr. Ambrose. -[facility] consult as I believe he warrants a psychiatry consult and consideration of inpt behavioral health Dispo - cont inpt. We were awaiting SNF placement, but pt not cooperating with PT/OT and thus considered discharge to street. However, I'm concerned he may be decompensated from a mental health standpoint and I believe he warrants a psychiatrist consult as he may be a grave harm to himself if he leaves. He wants to stay and thus not placed on a hold. Would place him on a hold until [facility] eval if he tried to leave, which is unlikely Subjective: Pt is not cooperative. States "I'm busy, I'll talk to you later". Refuses therapy again stating he is busy. Defensive posturing. Objective: Vital Signs Temp Pulse Resp BP Pulse Ox 36.4 C 62 16 110/74 96 06/15/17 08:00 06/15/17 08:00 06/15/17 08:00 06/15/17 08:00 06/15/17 08:00 06/14/17 06/15/17 06/16/17 05:59 05:59 05:59 Intake Total 200 700 Output Total 700 Balance -500 700 - Physical Exam Constitutional: no apparent distress Psychiatric: anxious, agitated ICD10 Worksheet Patient Problems: Problems Problem Status Onset Alcohol dependence Acute Ischemic stroke Acute
[2017-06-15] MEDS: traZODone 50 MG TAB PO SCH (21:52)
[2017-06-16] MEDS: ACETAMINOPHEN 325 MG TAB PO PRN ×2 (09:46→15:57)
[2017-06-16] MEDS: ASPIRIN 325 MG TAB PO SCH (09:46)
[2017-06-16] MEDS: ATORVASTATIN CALCIUM 20 MG TAB PO SCH (09:47)
[2017-06-16] MEDS: ENOXAPARIN 40 MG/0.4 ML SYR SC SCH (09:48)
[2017-06-16] MEDS: GABAPENTIN 300 MG CAP PO SCH ×3 (09:48→20:52)
[2017-06-16] MEDS: NICOTINE 21 MG/24 HR PATCH TD SCH (09:49)
[2017-06-16] MEDS: LISINOPRIL 5 MG TAB PO SCH (09:59)
--- NOTE | 2017-06-16 15:17 | HOSPPROG ---
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 Appreciate neurology consult. C-spine MRI neg for demyelinating dz. Neuro recommending op f/u for consideration of EMG eval and f/u of sxs. Continued on asa, statin. Patient refusing pt/ot. # gait instability: pt/ot eval and don't feel that a walker would help, he is homeless and does not have funds for wheelchair. Rejected from SNF. Will need to go back to homelessness # behavioral issues: with what is likely all related to personality issues. Continues to appear to be responding to internal stimuli and continues to be confrontational and angry. TLC eval and they do not feel he is in need of IP psych stay. Is well known to ER staff. # Hypertension - BP improved with low dose lisinopril, continue # H/O alcohol abuse - neg etoh, denies recent heavy drinking. No s/s of withdrawal # Tobacco abuse - offered nicoderm, encouraging cessation Insomnia - trazodone Homelessness - CM consult Dispo: no great dispo options for this patient, he is likely at baseline however, will plan to dc in am Subjective: no significant overnight events Objective: Vital Signs Temp Pulse Resp BP Pulse Ox 36.9 C 60 18 119/73 95 06/16/17 09:56 06/16/17 09:56 06/16/17 09:56 06/16/17 09:59 06/16/17 09:56 06/15/17 06/16/17 06/17/17 05:59 05:59 05:59 Intake Total 700 550 Balance 700 550 awake alert angry yelling anicteric op clear rrr no mrg contrfrontation and angry, remainder of physical exam deferred due to threatending behavior ICD10 Worksheet Patient Problems: Problems Problem Status Onset Alcohol dependence Acute Ischemic stroke Acute
--- NOTE | 2017-06-16 16:42 | ASMTCMCOM ---
CM Note CM Note Notes: According to ARACELY Boateng's note from yesterday [facility] did assess pt and he does not require [facility] health inpat and/or M1 hold. There is no note from [facility] to date on their interaction w pt yesterday. Pt will d/c tomorrow to the streets since pt is not allowed at the [facility], reports he has no friends/family to d/c to, is not eligible for respite and reasonable efforts were made for SNF placement to no avail. Pt worked w PT today on using walker since there is no wc available. CM to follow. Date Signed: 06/16/2017 04:41 PM Electronically Signed By:SOPHIE Bauman
[2017-06-16] MEDS: traZODone 50 MG TAB PO SCH (20:52)
[2017-06-17] MEDS ORDERED: LORazepam 0.5 MG TAB PO ONE ×3 (05:16→06:00)
[2017-06-17 08:29] VITALS: BP 119/78
[2017-06-17] MEDS: ACETAMINOPHEN 325 MG TAB PO PRN (08:41)
[2017-06-17] MEDS: GABAPENTIN 300 MG CAP PO SCH (08:41)
[2017-06-17] MEDS: ASPIRIN 325 MG TAB PO SCH (08:41)
[2017-06-17] MEDS: ATORVASTATIN CALCIUM 20 MG TAB PO SCH (08:41)
[2017-06-17] MEDS: LISINOPRIL 5 MG TAB PO SCH (08:42)
[2017-06-17] MEDS: NICOTINE 21 MG/24 HR PATCH TD SCH (08:42)
[2017-06-17] MEDS: ENOXAPARIN 40 MG/0.4 ML SYR SC SCH (08:43)
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
== END 2017-06-17 12:21 | disposition home or self-care (01) | DRG 45 ==
LOC: EDUNIT# → OBSVTOIN 19:50 → F3N 20:55
PROVIDERS: ADMIT Internal Medicine; ATTEND Internal Medicine
DX: I63.9 Cerebral infarction, unspecified (principal); F10.20 Alcohol dependence, uncomplicated; F17.210 Nicotine dependence, cigarettes, uncomplicated; G47.00 Insomnia, unspecified; I10 Essential (primary) hypertension; R26.9 Unspecified abnormalities of gait and mobility; H53.8 Other visual disturbances; Y90.9 Presence of alcohol in blood, level not specified; F29 Unspecified psychosis not due to a substance or known physiological condition; Z59.0 Homelessness
CPT/HCPCS: 80307; 97116-GP; 97162-GP; 97166-GO; 97535-GO; A9585; G0378; G0480; J1650; Q9967

== ENCOUNTER 2017-06-28 13:47 | Emergency (ER) | payer MEDICAID ==
[2017-06-28 14:45] VITALS: BP 112/89
--- NOTE | 2017-06-28 16:01 | EDPHY ---
H & P Stated Complaint: unable to move legs x 5 weeks, unable to move right side of body Time Seen by Provider: 06/28/17 15:44 HPI/ROS: CHIEF COMPLAINT: Chronic weakness and paresthesias HISTORY OF PRESENT ILLNESS: The patient presents the ED with complaints of diffuse weakness and paresthesias. The patient was in the emergency department several weeks ago with complaints of right-sided weakness and numbness. Those symptoms led the patient to get an MRI of his brain which demonstrated an old stroke. The patient was subsequently hospitalized. He had an extensive workup in consultation by Neurology. He was discharged home with recommendations to follow up as an outpatient and take a daily aspirin. The patient is currently homeless. He presents to the ED today complaining of ongoing neurologic symptoms. These have not acutely worsened. REVIEW OF SYSTEMS: A comprehensive 10 point review of systems is otherwise negative aside from elements mentioned in the history of present illness. Source: Patient Exam Limitations: No limitations - Medical/Surgical History Hx Asthma: No Hx Chronic Respiratory Disease: No Hx Diabetes: No Hx Cardiac Disease: No Hx Renal Disease: No Hx Cirrhosis: No Hx Alcoholism: Yes Hx HIV/AIDS: No Hx Splenectomy or Spleen Trauma: No Other PMH: R ARM FX, FOOT FX, Stroke April 2017 - Social History Smoking Status: Current every day smoker - Physical Exam Exam: General Appearance: Alert, no distress Eyes: Pupils equal and round no pallor or injection ENT, Mouth: Mucous membranes moist Respiratory: There are no retractions, lungs are clear to auscultation Cardiovascular: Regular rate and rhythm Gastrointestinal: Abdomen is soft and nontender, no masses, bowel sounds normal Neurological: 5/5 strength noted bilateral upper and lower extremities, patient is observed to walk a normal gait, reports decreased sensation to light touch in right arm and leg Skin: Warm and dry, no rashes Musculoskeletal: Neck is supple nontender Extremities: symmetrical, full range of motion Constitutional: Initial Vital Signs Temperature (C) 36.7 C 06/28/17 14:39 Heart Rate 80 06/28/17 14:39 Respiratory Rate 18 06/28/17 14:39 Blood Pressure 112/89 H 06/28/17 14:39 O2 Sat (%) 96 06/28/17 14:39 O2 Delivery Mode Room Air Allergies/Adverse Reactions: No Known Allergies Allergy (Verified 06/28/17 14:38) Home Medications: Medication Instructions Recorded Ibuprofen [Advil] 06/28/17 Medical Decision Making ED Course/Re-evaluation: The patient presents to the ED complaining of ongoing neurologic symptoms and lack of outpatient housing. I have explained to the patient that I do not have resources available outside of the current nursing home system in our community. I do not appreciate any acute findings on his neurologic exam. He has had an extensive workup today. The patient will be given the contact number for [facility] as well as the outpatient neurology service. Departure - Departure Disposition: [facility] Clinical Impression: Paresthesias Condition: Good Instructions: Paresthesia (ED) Additional Instructions: 1. Please follow-up with your primary care provider. 2. You have been given the contact number of the neurologist who evaluated you in the hospital. You can follow up with them as an outpatient. Referrals: Darrell Sahu MD [Primary Care Provider] - As per Instructions Gsu Swan DO [Medical Doctor] - As per Instructions
== END 2017-06-28 16:30 ==
LOC: EDBD → EDUNIT#
DX: R20.2 Paresthesia of skin (principal)

== ENCOUNTER 2017-07-22 01:36 | Emergency (ER) | payer MEDICAID ==
[2017-07-22] MEDS ORDERED: LORazepam 2 MG/ML INJ IVP ONE (01:46)
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
[2017-07-22] MEDS ORDERED: LORazepam 2 MG/ML INJ ONE (01:54)
[2017-07-22 02:35] VITALS: BP 107/68
== END 2017-07-22 02:34 | disposition home or self-care (01) ==
LOC: EEVIPCON 01:36
DX: R45.1 Restlessness and agitation (principal); F17.200 Nicotine dependence, unspecified, uncomplicated
CPT/HCPCS: 96374; J2060